=== PATIENT | female | born 1990 ===

== ENCOUNTER 2022-04-28 14:43 | Inpatient (IN) | payer BC ==
[2022-04-28] MEDS ORDERED: Water For Irrigation,Sterile 1,000 ML Container IRR PRN (18:43)
[2022-04-28] MEDS ORDERED: Tranexamic Acid 1,000 MG in Sodium Chloride 0.9% 100 ML IV PRN ×2 (18:43→21:28)
[2022-04-28] MEDS ORDERED: Sodium Chloride 0.9% 10 ML Syringe FLUSH PRN (18:43)
[2022-04-28] MEDS ORDERED: Lidocaine 1% 50 ML MDV INJECT PRN (18:43)
[2022-04-28] MEDS ORDERED: Sodium Chloride 0.9% 2.5 ML Syringe FLUSH PRN (18:43)
[2022-04-28] MEDS ORDERED: Misoprostol 200 MCG Tab PO PRN (18:43)
[2022-04-28] MEDS ORDERED: Carboprost Tromethamine 250 MCG/1 ML Amp IM PRN (18:43)
[2022-04-28] MEDS ORDERED: Butorphanol 1 MG/ML SDV IVPUSH PRN (18:43)
[2022-04-28] MEDS ORDERED: Methylergonovine 0.2 MG/1 ML Amp IM PRN ×2 (18:43→21:28)
[2022-04-28] MEDS ORDERED: Sodium Chloride 0.9% 20 ML SDV IV PRN (18:43)
[2022-04-28] MEDS ORDERED: Ondansetron 4 MG/2 ML SDV IVPUSH PRN (18:43)
[2022-04-28] MEDS ORDERED: Oxytocin/0.9 % Sodium Chloride 30 UNIT/500 ML BAG IV SCH (18:45)
[2022-04-28] MEDS ORDERED: Lactated Ringers 1,000 ML IV SCH (18:45)
[2022-04-28] MEDS ORDERED: Bisacodyl 10 MG Supp RECTAL PRN (21:28)
[2022-04-28] MEDS ORDERED: oxyCODONE 5 MG Tab PO PRN (21:28)
[2022-04-28] MEDS ORDERED: Acetaminophen 500 MG Tab PO PRN (21:28)
[2022-04-28] MEDS ORDERED: Witch Hazel Medicated Pads 40/Jar TOP PRN (21:28)
[2022-04-28] MEDS ORDERED: Benzocaine/Menthol 20%-0.5% Spray 78 GM Cannister TOP PRN (21:28)
[2022-04-28] MEDS ORDERED: Ibuprofen 400 MG Tab PO PRN (21:28)
[2022-04-28] MEDS ORDERED: Lanolin 100% Cream 7 GM Tube TOP PRN (21:28)
[2022-04-28] MEDS: Ibuprofen 800 MG Tab PO PRN (22:19)
[2022-04-28] MEDS: Acetaminophen 500 MG Tab PO PRN (22:20)
[2022-04-28] MEDS: Docusate Sodium 100 MG Cap PO PRN (22:23)
[2022-04-29] MEDS: Ibuprofen 800 MG Tab PO PRN ×2 (04:20→15:47)
[2022-04-29] MEDS: Acetaminophen 500 MG Tab PO PRN ×2 (15:48→20:37)
[2022-04-29] MEDS: Docusate Sodium 100 MG Cap PO PRN (20:37)
[2022-04-30] MEDS: Ibuprofen 800 MG Tab PO PRN ×2 (00:09→08:17)
[2022-04-30] MEDS: Docusate Sodium 100 MG Cap PO PRN (08:19)
== END 2022-04-30 12:20 | disposition home or self-care (01) | DRG 560 ==
LOC: MW.OBCHECK 14:43 → MW.OB 14:46 → MW.OBCHECK 20:00 → OBSVTOIN 20:51 → MW.OB 21:28
PROVIDERS: ADMIT Obstetrics & Gynecology; ATTEND Obstetrics & Gynecology
PROC: 10E0XZZ Delivery of Products of Conception, External Approach (ICD-10-PCS; principal; 2022-04-28)
PROC: 10907ZC Drainage of Amniotic Fluid, Therapeutic from Products of Conception, Via Natural or Artificial Opening (ICD-10-PCS; 2022-04-28)
PROC: 0KQM0ZZ Repair Perineum Muscle, Open Approach (ICD-10-PCS; 2022-04-28)
DX: O48.0 Post-term pregnancy (principal); Z3A.40 40 weeks gestation of pregnancy; Z37.0 Single live birth; Z20.822 Contact with and (suspected) exposure to COVID-19; O70.1 Second degree perineal laceration during delivery
CPT/HCPCS: 36415; 59025; 59409; 82803; 85014; 85018; 85027; 86592; 86850; 86900; 86901; A9270-GY; U0002